=== PATIENT | female | born 1985 | race Caucasian/White ===

== ENCOUNTER 2020-11-25 11:10 | Outpatient (CLI) | payer MEDICAID ==
[2020-11-25] MEDS ORDERED: OMNIPAQUE 350 MG/ML, 100ML BOTTLE ONE (13:05)
== END 2020-11-25 23:59 | disposition home or self-care (01) ==
LOC: CFH 11:10
PROVIDERS: ATTEND Nurse Practitioner Acute Care
DX: N83.291 Other ovarian cyst, right side (principal); R93.89 Abnormal findings on diagnostic imaging of other specified body structures; R19.00 Intra-abdominal and pelvic swelling, mass and lump, unspecified site; R10.2 Pelvic and perineal pain; J90 Pleural effusion, not elsewhere classified; J98.11 Atelectasis
CPT/HCPCS: 74177; Q9967

== ENCOUNTER → 2020-12-23 | Outpatient (CLI) | payer MEDICAID | END | disposition home or self-care (01) | LOC: CFH 11:37 | PROVIDERS: ATTEND Obstetrics & Gynecology | DX: N83.291 Other ovarian cyst, right side (principal); R93.89 Abnormal findings on diagnostic imaging of other specified body structures; R19.00 Intra-abdominal and pelvic swelling, mass and lump, unspecified site; R10.2 Pelvic and perineal pain; Z30.432 Encounter for removal of intrauterine contraceptive device; J98.11 Atelectasis | CPT/HCPCS: 74177; Q9967 ==